=== PATIENT | male | born 1995 | race Caucasian/White ===

== ENCOUNTER 2017-07-07 17:19 | Emergency (ER) | payer OTHER ==
[2017-07-07 17:42] VITALS: BP 122/60
--- NOTE | 2017-07-07 18:35 | ER Document Report ---
ED Head/Face/Scalp Injury - General Chief Complaint: Head Injury without LOC Stated Complaint: HEAD INJURY Time Seen by Provider: 07/07/17 18:30 Notes: The patient is a 22-year-old male who presents after he was at work and a heavy chain with a Cook hit the back of his head. He had 20 minutes of intermittent blurry vision that quickly resolved. He is only complaining of a very mild headache where hit. He denies nausea, vomiting, current blurry vision, focal weakness, numbness, tingling or LOC. TRAVEL OUTSIDE OF THE [place] IN LAST 30 DAYS: No - Related Data Allergies/Adverse Reactions: amoxicillin Allergy (Verified 07/07/17 17:41) Penicillins Allergy (Verified 07/07/17 17:41) Home Medications: Current Home Medications No Home Medications 07/07/17 [History] Past Medical History - General Information source: Patient - Social History Smoking Status: Current Every Day Smoker Chew tobacco use (# tins/day): No Frequency of alcohol use: Occasional Drug Abuse: None Family History: Reviewed & Not Pertinent Patient has suicidal ideation: No Patient has homicidal ideation: No Renal/ Medical History: Denies: Hx Peritoneal Dialysis Review of Systems - Review of Systems Notes: REVIEW OF SYSTEMS: CONSTITUTIONAL: -fevers, -chills EENT: -eye pain, -difficulty swallowing, -nasal congestion CARDIOVASCULAR:-chest pain, -syncope. RESPIRATORY: -cough, -SOB GASTROINTESTINAL: -abdominal pain, - nausea, -vomiting, -diarrhea GENITOURINARY: -dysuria, -hematuria MUSCULOSKELETAL: -back pain, -neck pain SKIN: -rash or skin lesions. HEMATOLOGIC: -easy bruising or bleeding. LYMPHATIC: -swollen, enlarged glands. NEUROLOGICAL: -altered mental status or loss of consciousness, +headache, - neurologic symptoms PSYCHIATRIC: -anxiety, -depression. ALL OTHER SYSTEMS REVIEWED AND NEGATIVE. Physical Exam - Vital signs Vitals: Temp Pulse Resp BP Pulse Ox 98.9 F 72 16 122/60 98 07/07/17 17:40 07/07/17 17:40 07/07/17 17:40 07/07/17 17:40 07/07/17 17:40 - Notes Notes: PHYSICAL EXAMINATION: GENERAL: Well-appearing, well-nourished and in no acute distress. HEAD: Mild tenderness and swelling over left posterior scalp. No step-offs. EYES: Pupils equal round and reactive to light, extraocular movements intact, sclera anicteric, conjunctiva are normal. ENT: nares patent, oropharynx clear without exudates. Moist mucous membranes. NECK: Normal range of motion, supple without lymphadenopathy LUNGS: Breath sounds clear to auscultation bilaterally and equal. No wheezes rales or rhonchi. HEART: Regular rate and rhythm without murmurs ABDOMEN: Soft, nontender, normoactive bowel sounds. No guarding, no rebound. No masses appreciated. EXTREMITIES: Normal range of motion, no pitting or edema. No cyanosis. NEUROLOGICAL: Cranial nerves grossly intact. Normal speech, normal gait. Normal sensory and motor exams. PSYCH: Normal mood, normal affect. SKIN: Warm, Dry, normal turgor, no rashes or lesions noted. Course - Re-evaluation Re-evalutation: Patient is low risk for any serious intracranial bleeds using the [place] head injury rules. Explained to patient about risks of radiation and he understands. Since injury occurred at work, he will follow-up with occupational health. Given strict return precautions and he understands. - Vital Signs Vital signs: Temp Pulse Resp BP Pulse Ox 98.9 F 72 16 122/60 98 07/07/17 17:40 07/07/17 17:40 07/07/17 17:40 07/07/17 17:40 07/07/17 17:40 Discharge - Discharge Clinical Impression: Head injury Qualifiers: Encounter type: initial encounter Qualified Code(s): S09.90XA - Unspecified injury of head, initial encounter Condition: Stable Disposition: HOME, SELF-CARE Additional Instructions: Head Injury Your examination shows no evidence of brain injury. You can therefore be safely observed at home. Give clear liquids only for the first eight hours. Acetaminophen or ibuprofen can safely be given for pain. Follow the directions on the bottle. Do not give any medication that may alter you level of alertness. Limit activity for the first 24 hours -- bed rest is advisable at first. Contact your doctor or go to the hospital if any of the following things occur: Persistent or projectile vomiting, a seizure, confusion, unequal pupil size, difficulty in arousing the patient, worsening or continued headache, or failure to improve as expected.
== END 2017-07-07 18:41 | disposition home or self-care (01) ==
LOC: ER 17:19
DX: S09.90XA Unspecified injury of head, initial encounter (principal); W22.8XXA Striking against or struck by other objects, initial encounter; Y99.0 Civilian activity done for income or pay; F17.200 Nicotine dependence, unspecified, uncomplicated; Z88.0 Allergy status to penicillin
CPT/HCPCS: 99283

== ENCOUNTER 2017-10-06 20:05 | Emergency (ER) | payer SELFPAY ==
[2017-10-06] MEDS ORDERED: GUAIFENESIN 600 MG TABLET.SA PO ONE (22:37)
[2017-10-06] MEDS ORDERED: IBUPROFEN 800 MG TABLET PO ONE (22:37)
[2017-10-06] MEDS ORDERED: LORATADINE 10 MG TABLET PO ONE (22:37)
[2017-10-06] MEDS ORDERED: PSEUDOEPHEDRINE HCL 30 MG TABLET PO ONE (22:37)
[2017-10-06] MEDS ORDERED: PROCHLORPERAZINE MALEATE 10 MG TABLET PO ONE (22:39)
[2017-10-06] MEDS ORDERED: DIPHENHYDRAMINE HCL 50 MG CAPSULE PO ONE (22:40)
--- NOTE | 2017-10-06 22:43 | ER Document Report ---
ED Flu Like - General Chief Complaint: Flu Symptoms Stated Complaint: HEADACHE Time Seen by Provider: 10/06/17 22:27 Mode of Arrival: Ambulatory Information source: Patient Notes: 22-year-old male presenting today for headache, cough, cold, congestion and flulike symptoms since Tuesday. He states his been taking ibuprofen and DayQuil. TRAVEL OUTSIDE OF THE [place] IN LAST 30 DAYS: No - HPI Onset: Other - Tuesday Timing/Duration: Persistent Quality of pain: Achy Severity: Moderate Pain Level: 3 Associated symptoms: Body/muscle aches, Chills, Nonproductive cough, Headache, Rhinnorhea, Sinus pain/drainage Similar symptoms previously: Yes Recently seen / treated by doctor: No - Related Data Allergies/Adverse Reactions: amoxicillin Allergy (Verified 07/07/17 17:41) Penicillins Allergy (Verified 07/07/17 17:41) Past Medical History - General Information source: Patient - Social History Smoking Status: Current Every Day Smoker Cigarette use (# per day): Yes - Pack per day Chew tobacco use (# tins/day): No Smoking Education Provided: Yes - 4 minutes Frequency of alcohol use: None Drug Abuse: None Occupation: [employer] and [employer] Lives with: Family Family History: Arthritis, CAD, CVA, Hyperlipidemia, Hypertension, Malignancy. denies: COPD, DM, Thyroid Disfunction Patient has suicidal ideation: No Patient has homicidal ideation: No - Past Medical History Cardiac Medical History: Reports: None Pulmonary Medical History: Reports: None EENT Medical History: Reports: None Neurological Medical History: Reports: None Endocrine Medical History: Reports: None Renal/ Medical History: Reports: None Malignancy Medical History: Reports None GI Medical History: Reports: None Musculoskeltal Medical History: Reports None Skin Medical History: Reports None Psychiatric Medical History: Reports: None Traumatic Medical History: Reports: None Infectious Medical History: Reports: None Surgical Hx: Negative Past Surgical History: Reports: None - Immunizations Immunizations up to date: Yes Review of Systems - Review of Systems Constitutional: Chills, Fever EENT: Nose congestion, Nose discharge, Sinus pressure, Sinus discharge Cardiovascular: No symptoms reported Respiratory: Cough Gastrointestinal: No symptoms reported Genitourinary: No symptoms reported Male Genitourinary: No symptoms reported Musculoskeletal: No symptoms reported Skin: No symptoms reported Hematologic/Lymphatic: No symptoms reported Neurological/Psychological: No symptoms reported -: Yes All other systems reviewed and negative Physical Exam - Vital signs Vitals: Temp Pulse Resp BP Pulse Ox 98.5 F 88 18 119/58 L 98 10/06/17 20:35 10/06/17 20:35 10/06/17 20:35 10/06/17 20:35 10/06/17 20:35 Interpretation: Normal - General General appearance: Appears well, Alert - HEENT Head: Normocephalic, Atraumatic Eyes: Normal Pupils: PERRL Visual dai normal: Yes Ears: Normal External canal: Normal Tympanic membrane: Normal Sinus: Normal Nasal: Purulent discharge, Swelling Mouth/Lips: Normal Mucous membranes: Normal Pharynx: Post nasal drainage. No: Erythema, Exudate, Peritonsillar abscess, Retropharyngeal abscess, Tonsillar hypertrophy, Uvular edema, Potential airway comprom. Neck: Normal - Respiratory Respiratory status: No respiratory distress Chest status: Nontender Breath sounds: Nonproductive cough. No: Rales, Rhonchi, Stridor, Wheezing Chest palpation: Normal - Cardiovascular Rhythm: Regular Heart sounds: Normal auscultation Murmur: No - Abdominal Inspection: Normal Distension: No distension Bowel sounds: Normal Tenderness: Nontender Organomegaly: No organomegaly - Back Back: Normal, Nontender - Extremities General upper extremity: Normal inspection, Nontender, Normal color, Normal ROM , Normal temperature General lower extremity: Normal inspection, Nontender, Normal color, Normal ROM , Normal temperature, Normal weight bearing. No: Rere's sign - Neurological Neuro grossly intact: Yes Cognition: Normal Orientation: AAOx4 Shay Coma Scale Eye Opening: Spontaneous Shay Coma Scale Verbal: Oriented Shay Coma Scale Motor: Obeys Commands Victor Coma Scale Total: 15 Speech: Normal Motor strength normal: LUE, RUE, LLE, RLE Sensory: Normal - Psychological Associated symptoms: Normal affect, Normal mood - Skin Skin Temperature: Warm Skin Moisture: Dry Skin Color: Normal Course - Re-evaluation Re-evalutation: 10/07/17 02:06 Chief complaint of a headache off and on for a since Tuesday. States he has had cough cold congestion-like symptoms for a since Tuesday. Patient was offered ibuprofen Compazine and Benadryl Sudafed and Mucinex. Patient refused the ibuprofen Benadryl and Sudafed. He took the Compazine and Mucinex. He states he had the other medications at home. Patient was instructed to follow-up with his primary doctor for his headache. Patient verbalized understanding of instructions. When asked if he had any other questions or concerns he stated no he had those other medications at home and he did not need to take him now and he would follow up with his doctor. - Vital Signs Vital signs: Temp Pulse Resp BP Pulse Ox 98.8 F 84 18 117/58 L 98 10/06/17 22:58 10/06/17 22:58 10/06/17 20:35 10/06/17 22:58 10/06/17 22:58 Discharge - Discharge Clinical Impression: Viral respiratory illness Headache Qualifiers: Headache type: unspecified Headache chronicity pattern: unspecified pattern Intractability: not intractable Qualified Code(s): R51 - Headache Condition: Stable Disposition: HOME, SELF-CARE Instructions: Family Physicians / Practices Additional Instructions: UPPER RESPIRATORY ILLNESS: You have a viral infection of the respiratory passages -- a "cold." This common infection causes nasal congestion, drainage, and often sore throat and cough. It is highly contagious. The disease usually lasts about 10 to 14 days. There is no "cure" for the viral infection -- it must run its course. If there is a complication, such as bacterial infection in the nose, sinuses, middle ear, or bronchial tubes, antibiotics may be required. The antibiotics won't affect the virus. Drink plenty of fluids. A humidifier may help. An expectorant medication or decongestant may make you more comfortable. Use acetaminophen or ibuprofen for fever or aches. See the doctor if fever persists over two days, if there is any significant worsening of your symptoms, or if you simply fail to improve as expected. HEADACHE: The physician does not feel that the headache you are experiencing has a serious underlying cause. Most headaches are due to emotional stress, with resultant muscle tension (tension headache). Occasionally, headaches are secondary to changes in the blood vessels of the scalp (vascular headache and migraine headache). Sometimes, a headache is the first symptom of another developing illness, such as a viral infection. You have no evidence of stroke, bleeding, meningitis, or other serious cause of your headache. The treatment of headaches varies with the severity and cause of the pain. Not all headaches need pain shots. In fact, there is evidence that using narcotics for headaches may make them worse in the long run. The physician will determine the therapy that's in your best interest. If you develop a fever, if the headache is different from any you've previously experienced, or if the headache progressively worsens, then call your physician at once or go to the emergency room. USE OF DIPHENHYDRAMINE: Diphenhydramine (Benadryl) is an antihistamine and has been recommended to help treat your headache and to prevent side effects of other medications used to treat headaches. The medication can be repeated four times daily. Age Elixir (12.5 mg/tsp) 25 mg pill adult 1-2 tabs Antihistamines may cause drowsiness, especially with the first dose. Do not operate machinery or drive while under the effects of the medication. Do not combine the medication with alcohol, or with any other medication without talking to your doctor. COMPAZINE FOR HEADACHE: You have received therapy for headaches, using Compazine. This treatment is dramatically successful in relieving the headache in about 50 percent of cases. When it works, it provides a rapid method of eliminating the headache without resorting to narcotics (and the problems associated with them). Most patients still feel fully alert after the Compazine, but others may be slightly drowsy. It's best not to drive or work with machinery for six to eight hours. Do not take alcohol or other medication unless you discuss it with the doctor. If you develop tightness and spasms in your muscles, especially the neck and tongue, you should return. This is a side effect which can be treated. DECONGESTANT MEDICATION: A decongestant medicine has been prescribed. Often this medicine is combined in the same tablet with an antihistamine or expectorant. This type of medicine is helpful in treating a bad cold or sinus condition, as well as in treatment of the nasal congestion of hay fever. It is not of much benefit for lung infections. Decongestant medicines are related to stimulants. They can cause an increase in blood pressure and heart rate. Persons with heart disease and high blood pressure should not take decongestants without discussing this with the physician. If you develop palpitations, chest pain, headache, or tremors, stop the medicine and consult your physician. COUGH-SUPPRESSANT & EXPECTORANT MEDICATION: You are to use a cough medication as needed for relief of symptoms. This medicine is a combination of an expectorant (to make the mucous thinner and more easily "coughed up") and a cough suppressant (to reduce the frequency of coughing). The cough-suppressant medicine is related to narcotics. You may experience mild nausea and sleepiness. Some patients who are very sensitive to narcotics may have stomach pain from this medicine. Taking the medicine with food reduces these side effects. Do not drive or work with machinery until you know how this medicine affects you. The expectorant should have no side effects. Iodine-containing expectorants (such as organidin) should not be taken by persons with active thyroid disease unless approved by your doctor. Call the doctor if you develop shortness of breath, hives, rash, itching, lightheadedness, or severe nausea and vomiting. USE OF ACETAMINOPHEN (Tylenol): Acetaminophen may be taken for pain relief or fever control. It's much safer than aspirin, offering a wider range of "safe" dosages. It is safe during . Some brand names are Tylenol, Panadol, Datril, Anacin 3, Tempra, and Liquiprin. Acetaminophen can be repeated every four hours. The following are maximum recommended dosages: >89 pounds or adults 650 mg to 900 mg Acetaminophen can be repeated every four hours. Maximum dose not to exceed 4000 mg a day. SMOKING: If you smoke, you should stop smoking. The tar and chemicals in cigarette smoke are harmful. Smoking has been shown to cause: emphysema chronic bronchitis lung cancer mouth and throat cancer stomach and pancreas cancer premature aging defects In addition, smoking increases ear and lung infections in children of smokers. FOLLOW-UP CARE: If you have been referred to a physician for follow-up care, call the physician s office for an appointment as you were instructed or within the next two days. If you experience worsening or a significant change in your symptoms, notify the physician immediately or return to the Emergency Department at any time for re-evaluation. Prescriptions: Prochlorperazine Maleate [Compazine 10 mg Tablet] 10 mg PO ASDIR PRN #10 tablet PRN Reason: Forms: Smoking Cessation Education, Return to Work
[2017-10-06 23:00] VITALS: BP 117/58
== END 2017-10-06 23:12 | disposition home or self-care (01) ==
LOC: ER 20:05
DX: J98.9 Respiratory disorder, unspecified (principal); B97.89 Other viral agents as the cause of diseases classified elsewhere; R51 Headache; R05 Cough; M79.1 Myalgia; J34.89 Other specified disorders of nose and nasal sinuses; R50.9 Fever, unspecified; R09.81 Nasal congestion; R09.82 Postnasal drip; F17.210 Nicotine dependence, cigarettes, uncomplicated; Z71.6 Tobacco abuse counseling; Z88.0 Allergy status to penicillin
CPT/HCPCS: 99283; 99406

== ENCOUNTER 2018-06-18 16:55 | Emergency (ER) | payer SELFPAY ==
[2018-06-18 17:04] VITALS: BP 122/61
--- NOTE | 2018-06-18 18:13 | RADIOLOGY REPORT (SQ) ---
EXAM DESCRIPTION: ANKLE RIGHT COMPLETE COMPLETED DATE/TIME: 06/18/2018 5:43 pm REASON FOR STUDY: Pain/injury R ankle/foot s/p injury last COMPARISON: Right foot x-ray 06/18/2018. NUMBER OF VIEWS: Three views. TECHNIQUE: AP, lateral, and oblique radiographic images acquired of the right ankle. LIMITATIONS: None. FINDINGS: MINERALIZATION: Normal. BONES: No acute fracture or dislocation. The ankle mortise is maintained. SOFT TISSUES: Mild soft tissue swelling. No radiopaque foreign body. IMPRESSION: Mild soft tissue swelling at the right ankle with no radiographic evidence of acute frac ture. TECHNICAL DOCUMENTATION: JOB ID: [id number] [email or web address] 2010 [employer]- All Rights Reserved Reading location - IP/workstation name: [email or web address]
--- NOTE | 2018-06-18 18:16 | RADIOLOGY REPORT (SQ) ---
EXAM DESCRIPTION: FOOT RIGHT COMPLETE COMPLETED DATE/TIME: 06/18/2018 5:43 pm REASON FOR STUDY: Pain/injury R ankle/foot s/p injury last COMPARISON: None. NUMBER OF VIEWS: Three views. TECHNIQUE: AP, lateral and oblique radiographic images acquired of the right foot. LIMITATIONS: None. FINDINGS: MINERALIZATION: Normal. BONES: No acute fracture or dislocation. SOFT TISSUES: There is mild soft tissue swelling at the dorsum of the foot. No radiopaque foreign madina dy. IMPRESSION: Mild soft tissue swelling at the dorsum of the right foot with no radiographic evidence of acute fracture. TECHNICAL DOCUMENTATION: JOB ID: [id number] [id number] 2010 [employer]- All Rights Reserved Reading location - IP/workstation name: [email or web address]
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
== END 2018-06-18 19:08 | disposition home or self-care (01) ==
LOC: ER 16:55
DX: S93.431A Sprain of tibiofibular ligament of right ankle, initial encounter (principal); S90.31XA Contusion of right foot, initial encounter; M25.571 Pain in right ankle and joints of right foot; M79.671 Pain in right foot; V18.4XXA Pedal cycle driver injured in noncollision transport accident in traffic accident, initial encounter; Y93.55 Activity, bike riding; F17.200 Nicotine dependence, unspecified, uncomplicated
CPT/HCPCS: 99283; 73610; 73630; L1902